=== PATIENT | female | born 1950 | race Caucasian/White ===

== ENCOUNTER 2018-12-18 14:27 | Emergency (ER) | payer MEDICARE, SELFPAY ==
[2018-12-18 14:28] VITALS: BP 145/102; PULSE 85; RESP 16; TEMP 37.2; O2SAT 96; BMI 24.9
--- NOTE | 2018-12-18 14:30 | ED.RN ---
PT NOW REPORTS CHEST PRESSURE.
[2018-12-18 14:38] VITALS: BP 184/103; PULSE 81; RESP 16; O2SAT 96
--- NOTE | 2018-12-18 14:58 | EKG12_ITS ---
Test Reason : CHEST PRESSURE Blood Pressure : / mmHG Vent. Rate : 075 BPM Atrial Rate : 075 BPM P-R Int : 192 ms QRS Dur : 100 ms QT Int : 412 ms P-R-T Axes : 044 -37 032 degrees QTc Int : 460 ms Normal sinus rhythm Left axis deviation Poor R-Wave Progression Abnormal ECG Confirmed by EDDA ALCALA, GEOVANI ([id number]), order editor SURI HUGHES ([id number]) on 12/21/2018 1:10:43 PM Referred By: MELANIE/FOREIGN Confirmed By:GEOVANI BAÑUELOS MD
--- NOTE | 2018-12-18 14:59 | ED.DCSUM_ITS ---
History of Present Illness Chief Complaint: Palpitations Detail of Chief Complaint: Palpitations and chest pressure Informant: Patient Onset: Today Context: Sudden Onset Timing: Waxes and wanes Current Severity: Mild Maximum Severity: Moderate Narrative: Patient is currently visiting from out of town. She states that she was diagnosed with A. fib RVR in October of this year. She converted back to sinus rhythm. She is treated with amiodarone and Eliquis. Patient states that she has been having difficulty at night with feeling like her heart is racing, when she checks her pulse is only 60-80. She states when she returns home they may be switching her amiodarone to a different rate control medication. Patient states that she has been sitting out this on the past several days. Today she became very warm and checked her pulse, noting that it was 100. She was unsure if she was back in A. fib and became very anxious. She states this caused some chest tightness that is now completely resolved. - Past Medical History (1) A-fib Status: Acute Past Medical History - Allergies and Home Meds Allergies/Adverse Reactions: Allergies cephalexin [From Keflex] Allergy (Verified 12/18/18 14:31) Other Iodinated Contrast- Oral and IV Dye [DYEE] Allergy (Verified 12/18/18 14:31) Other Primary Care Physician: [facility] Doctor,Out of [Primary Care Provider] - Prior records reviewed: Yes Past Medical History: - - Reviewed Lives: Spouse/ Significant Other Smoking Status: Never smoker Alcohol: None Drugs: None Review of Systems General: Denies: Chills, Fever Cardiovascular: Reports: Chest pain, Heart racing Respiratory: Denies: Dyspnea, Cough Gastrointestinal: Denies: Abdominal pain, Nausea, Vomiting Genitourinary: Denies: Dysuria Neurological: Denies: Headache Physical Exam Vital Signs/Narrative: Vital Signs Temp Pulse Resp BP Pulse Ox 12/18/18 14:38 81 16 184/103 H 96 12/18/18 14:28 98.9 F 85 16 145/102 H 96 Diagnostic/Tx/Re-eval Abnormal Lab Results 12/18/18 12/18/18 14:40 14:40 WBC 8.4 RBC 5.07 Hgb 15.8 H Hct 45.8 MCV 90.3 MCH 31.2 MCHC 34.5 RDW 13.4 RDW Differential 43.8 Plt Count 245 MPV 9.7 Immature Gran % (Auto) 0.100 Neut % (Auto) 65.7 Lymph % (Auto) 21.7 Coffee % (Auto) 10.0 Eos % (Auto) 2.0 Baso % (Auto) 0.5 Absolute Neuts (auto) 5.5 Absolute Lymphs (auto) 1.82 Total Counted Not Reportable Sodium 139 Potassium 3.7 Chloride 105 Carbon Dioxide 29.0 Anion Gap 5 BUN 14 Creatinine 0.83 Estim Creat Clear Calc 54.46 Est GFR (MDRD) Af Amer 88 Est GFR (MDRD) Non-Af 73 BUN/Creatinine Ratio 16.9 Glucose 97 Calcium 9.3 Troponin I < 0.015 Clinical Impression(s) from Imaging Studies Chest X-Ray 12/18/18 15:20 IMPRESSION: Mild cardiomegaly with hyperexpansion. No acute finding. Electronically Signed: Ovi Mariee MD at 15:58 EDT , Service support , - EKG Initial EKG Interpretation: Sinus Rhythm, - - EKG sinus at 75 with no acute ischemia. - Medical Decision Making Patient has been observed on cardiac nurse practitioner throughout her ED stay. She has occasional PACs but no evidence of A. fib. She has an appointment with her PCP in 2 days to discuss possibly changing her amiodarone and restarting some blood pressure medication. She is currently anticoagulated so she does go into A. fib she is covered with that. I did spend quite a bit of time at patient's bedside discussing A. fib and arrhythmias with her. All questions have been answered. ED Disposition - Plan for ED Patient: Disposition: Home or Assisted Living Instructions: Palpitations Referrals: Town Doctor,Out of [Primary Care Provider] - Additional Instructions: Follow-up with your physician on Friday as scheduled.
[2018-12-18 15:17] LABS: Absolute Lymphocyte Count 1.82 X10^3/ul (0.83-4.51); Absolute Neutrophil Count 5.5 X10^3/uL (2.0-7.7); Basophil# 0.04 X10^3/uL; Basophil% 0.5 % (0-1); Eosinophil# 0.17 X10^3/uL; Hematocrit 45.8 % (37-47); Hemoglobin 15.8 g/dl (12.0-15.0); Lymphocyte # 1.82 X10^3/ul (4.0); Lymphocyte % 21.7 % (19-41); Mean Corp Hgb Conc 34.5 g/gl (32-36); Mean Corpuscular Hgb 31.2 pg (27.0-32.0); Mean Corpuscular Volume 90.3 fL (81-99); Mean Platelet Vol. 9.7 fl (6.2-12.0); Monocyte# 0.84 X10^3/uL; Neutrophil # 5.49 X10^3/uL (2.7-7.7); Neutrophil % 65.7 % (47-70); Platelet Count 245 K/mm3 (150-450); RBC Distribution Width CV 13.4 % (11.6-14.6); RBC Distribution Width SD 43.8 fl (35.1-43.9); Red Blood Count 5.07 M/mm3 (4.2-5.4); White Blood Count 8.4 K/mm3 (4.4-11.0)
--- NOTE | 2018-12-18 15:20 | RAD_ITS ---
STUDY: X-RAY CHEST REASON FOR EXAM: Female, 68 years old. Palpitations. TECHNIQUE: Single frontal view of the chest. COMPARISON: None. FINDINGS: Hyperexpansion. There is no demonstrated pleural abnormality. Mild cardiomegaly. Normal mediastinum and judi. Normal visualized pulmonary arteries. Aortic tortuosity. Normal visualized thoracic spine. Normal visualized ribs, clavicles, and shoulders. There is no demonstrated abnormality of the visualized soft tissue structures of the upper abdomen. RAD/Chest 1 View (Portable) IMPRESSION: Mild cardiomegaly with hyperexpansion. No acute finding. Electronically Signed: Ovi Mariee MD at 15:58 EDT , Service support ,
[2018-12-18 15:24] LABS: Anion Gap 5 (5-15); BUN 14 mg/dL (7-18); BUN/Creat Ratio 16.9 RATIO (10-20); Calcium,Total 9.3 mg/dL (8.5-10.1); Chloride 105 mmol/L (98-107); Creatinine, Serum 0.83 mg/dL (0.55-1.02); EST Glomerular Filtration Rate 73 mL/min (>60); Est Glom Filt Rate - Afr Amer 88 mL/min (>60); Estimated Creatinine Clearance 54.46 ml/min; Glucose 97 mg/dL (74-106); Potassium 3.7 mmol/L (3.5-5.1); Sodium Level 139 mmol/L (136-145)
[2018-12-18 15:31] VITALS: BP 167/101; PULSE 82; RESP 16; O2SAT 99
[2018-12-18 15:46] LABS: POSITIVE COUNT NO; POSITIVE DIFFERENTIAL NO; POSITIVE MORPHOLOGY NO
[2018-12-18] MEDS: 0.9% Normal Saline 1,000 ML 1000 ML IV (15:47)
[2018-12-18 16:00] VITALS: BP 189/102; PULSE 71; RESP 16; O2SAT 96
[2018-12-18 16:13] VITALS: BP 189/102; PULSE 71; RESP 16; O2SAT 96
== END 2018-12-18 16:22 | disposition home or self-care (01) ==
PROVIDERS: Emergency Provider Emergency Medicine
DX: R00.2 Palpitations (principal); Z88.1 Allergy status to other antibiotic agents; I48.91 Unspecified atrial fibrillation
CPT/HCPCS: 71045; 80048; 84484; 85025; 93005; 96360; 99284; J7030; A4216